=== PATIENT | male | born 1945 ===

== ENCOUNTER 2024-06-16 07:56 | Emergency (ER) | payer MEDICARE, SELFPAY ==
[2024-06-16] VITALS (9 sets, daily range): BP systolic 128–155; BP diastolic 67–83; PULSE 73–90; RESP 16–20; TEMP 36.5–37.2; O2SAT 96–100; BMI 18.4
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
--- NOTE | 2024-06-16 09:07 | PC.NURSE ---
Labs collected and sent as ordered. Awaiting urine sample at this time.
[2024-06-16 09:09] LABS: MANUAL DIFF FLAG NO
[2024-06-16 09:14] LABS: Basophils Absolute Auto 0.1 X10*3/uL (0.0-0.2); Basophils Percent Auto 0.5 % (0-2); Eosinophils Absolute Auto 0.2 X10*3/uL (0.0-0.4); Eosinophils Percent Auto 1.6 % (0-4); Hematocrit 43.1 % (42.0-52.0); Hemoglobin 14.5 g/dl (14.0-18.0); Imm Gran Abs Auto 0.05 X10*3/uL (0.00-0.03); Imm Gran Pct Auto 0.5 % (0.0-0.4); Lymphocytes Absolute Auto 1.7 X10*3/uL (1.2-4.9); Mean Corpuscular HGB Conc 33.6 g/dl (31.0-36.0); Mean Corpuscular Hemoglobin 30.9 pg (27.0-33.0); Mean Corpuscular Volume 91.7 fL (80.0-98.0); Mean Platelet Volume 10.2 fL (9.4-12.4); Monocytes Absolute Auto 0.9 X10*3/uL (0.1-1.2); Monocytes Percent Auto 9.1 % (2-11); Neutrophils Absolute Auto 6.6 x10*3/uL (2.0-8.3); Neutrophils Percent Auto 70.3 % (45-73); Platelet Count 250 X10*3/uL (160-400); Red Cell Distribution Width 12.5 % (11.0-16.0); White Blood Count 9.4 X10*3/uL (4.8-10.8)
[2024-06-16 09:21] LABS: Anion Gap 12 (12-20); Blood Urea Nitrogen 12 mg/dL (9-16); Calcium 9.1 mg/dL (8.4-10.2); Carbon Dioxide 26 mmol/L (22-29); Chloride 108 mmol/L (96-108); Creatinine Clr Calc Pharmacy 59.7; Estimated Glomerular Filt Rate > 60; Glucose Random 99 mg/dL (60-115); Potassium 3.7 mmol/L (3.3-5.1); Sodium 142 mmol/L (135-145)
[2024-06-16 09:35] LABS: Troponin-I High Sensitivity < 2.7 ng/L (<3.5-35.0)
--- NOTE | 2024-06-16 10:13 | PC.NURSE ---
Pt. visibly soiled. Changed over to hospital attire and personal belongings bagged and locked in pt. belongings closet between Main ED and Pod.
[2024-06-16 12:13] LABS: Appearance Urine Clear; Color Urine Yellow; Glucose Urine UA Negative (Negative); Leukocyte Esterase Urine Trace (Negative); Nitrite Urine Negative (Negative); Specific Gravity - Urine 1.015 (1.005-1.025); UMIC TRIGGER UACC YES; Urine Blood Negative (Negative); Urine Ketones Trace mg/dL (Negative); Urine Protein Negative (Neg-Trace)
[2024-06-16 12:16] LABS: Bacteria Urine None Seen (None Seen); Hyaline Casts Urine 0-2 /LPF (0-2); RBC Urine 0-2 /HPF (0-2); Squamous Epithelial Cell Urine 0-2 /HPF (0-2); WBC Urine 0-5 /HPF (0-5)
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
--- NOTE | 2024-06-16 17:26 | PHA.MEDREC ---
Pharmacy Consult ? Medication Reconciliation Pharmacy has reviewed the medication reconciliation completed by nursing. Claim history matches confirmed meds.
--- NOTE | 2024-06-16 17:49 | MHC.EDTECH ---
Pt was freshened up and linens were changed
[2024-06-16] MEDS: amLODIPine Besylate 5 MG TABLET PO (18:23)
[2024-06-16] MEDS: polyethylene glycoL 3350 17 GM POWD.PACK PO (18:23)
[2024-06-16] MEDS: Divalproex Sodium Sprinkles 125 MG CAP.DR.SPR 250 MG PO ×2 (18:24→20:29)
[2024-06-16] MEDS: Cholecalciferol (Vitamin D3) 25 MCG TABLET PO (18:27)
[2024-06-16] MEDS: QUEtiapine Fumarate 50 MG TABLET PO (20:29)
[2024-06-16] MEDS: Melatonin 3 MG TABLET 6 MG PO (20:29)
[2024-06-17 06:42] VITALS: RESP 15
--- NOTE | 2024-06-17 06:43 | PC.NURSE ---
pt slept comfortably throughout the night, repositioning self as needed. bed alarm on. nad.
[2024-06-17 08:29] VITALS: BP 132/91; PULSE 71; RESP 16; TEMP 36.8; O2SAT 100
[2024-06-17] MEDS: Divalproex Sodium Sprinkles 125 MG CAP.DR.SPR 250 MG PO (08:40)
[2024-06-17] MEDS: Cholecalciferol (Vitamin D3) 25 MCG TABLET PO (08:40)
[2024-06-17] MEDS: polyethylene glycoL 3350 17 GM POWD.PACK PO (08:40)
[2024-06-17] MEDS: QUEtiapine Fumarate 50 MG TABLET PO ×2 (08:40→13:09)
[2024-06-17] MEDS: amLODIPine Besylate 5 MG TABLET PO (08:40)
--- NOTE | 2024-06-17 08:57 | PC.NURSE ---
patient provided with breakfast, takes pills whole with water. patient has to be prompted to takes pills - takes w/out incident. resting quietly in room, no obvious signs/symptoms of distress noted. remains in behavioral control.
--- NOTE | 2024-06-17 10:45 | PC.NURSE ---
patient out of bed and ambulated to the bathroom. large bowel movement in brief - refusing to change armen pants for this RN. tech at bedside able to change and clean patient. now resting quietly in room w/ bed alarm on
--- NOTE | 2024-06-17 12:32 | MHC.CM.ED ---
Patient remains in ER. No behaviors noted since being in ER. Patient took all medication without issues. Spoke with Meghan at [facility]. Above was explained. Meghan requested patient receive 12pm Depakote before transport. Daphney FRANCO aware and will administer Depakote. Attempted to notify patient's , Maxwell via telephone at [phone]. Left voicemail explaining patient would leave at 130pm. Shae PORTER booked. [facility] with chart. Patient, Daphney FRANCO and Zaida GILLIAM aware. Continue to monitor for d/c needs.
[2024-06-17 15:42] VITALS: BP 132/91; PULSE 71; RESP 16; TEMP 36.8; O2SAT 100
== END 2024-06-17 13:00 | disposition skilled nursing facility (03) ==
PROVIDERS: Emergency Provider Emergency Medicine; PCP Internal Medicine
DX: F03.90 Unspecified dementia, unspecified severity, without behavioral disturbance, psychotic disturbance, mood disturbance, and anxiety (principal)
CPT/HCPCS: 36415; 80048; 81001; 84484; 85025; 99284; 99285

== ENCOUNTER 2024-06-23 17:02 | Emergency (ER) | payer MEDICARE, SELFPAY ==
[2024-06-23 17:14] VITALS: BP 141/77; BP 145/78; PULSE 102; PULSE 96; RESP 16; TEMP 36.8; O2SAT 97; O2SAT 98; BMI 26.6
--- NOTE | 2024-06-23 17:17 | PC.NURSE ---
[facility]
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
[2024-06-23 17:38] LABS: MANUAL DIFF FLAG NO
[2024-06-23 17:41] LABS: Basophils Percent Auto 0.4 % (0-2); Eosinophils Absolute Auto 0.2 X10*3/uL (0.0-0.4); Eosinophils Percent Auto 2.8 % (0-4); Hematocrit 42.2 % (42.0-52.0); Hemoglobin 13.7 g/dl (14.0-18.0); Imm Gran Abs Auto 0.07 X10*3/uL (0.00-0.03); Lymphocytes Absolute Auto 2.5 X10*3/uL (1.2-4.9); Lymphocytes Percent Auto 34.1 % (20-40); Mean Corpuscular HGB Conc 32.5 g/dl (31.0-36.0); Mean Corpuscular Hemoglobin 30.2 pg (27.0-33.0); Mean Platelet Volume 10.5 fL (9.4-12.4); Monocytes Percent Auto 13.8 % (2-11); Neutrophils Absolute Auto 3.5 x10*3/uL (2.0-8.3); Neutrophils Percent Auto 47.9 % (45-73); Platelet Count 242 X10*3/uL (160-400); Red Blood Count 4.54 X10*6/uL (4.60-5.80); Red Cell Distribution Width 12.3 % (11.0-16.0); White Blood Count 7.3 X10*3/uL (4.8-10.8)
[2024-06-23 17:59] LABS: Alanine Aminotransferase 16 U/L (0-40); Albumin Level 3.9 g/dL (3.5-5.0); Alkaline Phosphatase 55 U/L (39-117); Anion Gap 12 (12-20); Aspartate Amino Transferase 12 U/L (5-37); Bilirubin Direct 0.2 mg/dL (0.0-0.5); Bilirubin Total 0.4 mg/dL (0.0-1.0); Blood Urea Nitrogen 15 mg/dL (9-16); Calcium 8.5 mg/dL (8.4-10.2); Carbon Dioxide 28 mmol/L (22-29); Chloride 105 mmol/L (96-108); Creatinine Clr Calc Pharmacy 68.4; Estimated Glomerular Filt Rate > 60; Glucose Random 108 mg/dL (60-115); Potassium 3.7 mmol/L (3.3-5.1); Sodium 141 mmol/L (135-145); Total Protein 6.5 g/dL (6.5-8.0)
[2024-06-23 18:10] VITALS: BP 120/72; PULSE 81; RESP 17; O2SAT 98
--- NOTE | 2024-06-23 20:16 | PC.NURSE ---
pt resting quietly with 1:1 at bedside- pt has been cooperative with care, ambulating with sitter around dept- no disruptive or aggresive behaviors- care ongoing
[2024-06-23 20:51] VITALS: BP 124/65; PULSE 81; RESP 16; TEMP 36.7; O2SAT 99
--- NOTE | 2024-06-23 22:05 | PC.NURSE ---
Addendum entered by Ayanna Salas LPN 06/23/24 22:08: pt remains in department- pt was incontinent of urine in brief- personal care provided, 1:[address], pt has yet to provide urine sample. awaiting care team david Original Note: pt remains in department- pt was incontinent of urine in brief- personal care provided, 1:[address], pt has yet to provide urine sample.
--- NOTE | 2024-06-23 22:13 | MHC.CARE ---
Pt was assessed by CARE team, disposition was discussed with Leticia Renteria MD who was in agreement that Pt will [facility]. Pt resides on a secure memory unit and has been followed by [facility] [employer] director, Barby Winn, for the past couple months who is working to make some medication adjustments to better address his behaviors. Psych consult or higher level of care are not indicated at this time due to Pt is being followed by [facility] [employer] provider & currently resides on a secure memory unit to address his advanced stage dementia.
--- NOTE | 2024-06-23 23:00 | PC.NURSE ---
Assumed care of pt. Pt lying on stretcher, no acute distress at this time. 1:1 sitter for safety at bedside.
[2024-06-24] VITALS: BP 123/63; PULSE 78; RESP 16; O2SAT 99
--- NOTE | 2024-06-24 03:02 | PC.NURSE ---
Attempted straight catheterization per MD verbal request, pt resistant to procedure despite verbal reassurance.
--- NOTE | 2024-06-24 03:40 | PC.NURSE ---
This RN called [facility] to give RN to RN report on return of patient. This RN was notified by facility that they would be unable to accept the patient until after 8a due to staffing issues, and the RN does not arrive to the facility until after 8am. MD clarke.
[2024-06-24 06:00] VITALS: BP 132/77; PULSE 73; RESP 16; TEMP 36.8; O2SAT 97
--- NOTE | 2024-06-24 07:16 | PHA.MEDREC ---
Addendum entered by Makayla Cordero [facility] 06/24/24 08:02: MED REC REVIEWED BY [facility] Addendum entered by Pastor Jeffries 06/24/24 08:00: List from [facility]. Original Note: Pharmacy Consult ? Medication Reconciliation Pharmacy has completed the medication reconciliation. List
--- NOTE | 2024-06-24 08:16 | PC.NURSE ---
report called to [facility], no answer but message left. Overnight shift spoke with them and said they could not take the pt back until 8am, ambulance booked for 0900
[2024-06-24 09:03] VITALS: BP 154/89; PULSE 88; RESP 16; TEMP 36.6; O2SAT 98
--- NOTE | 2024-06-24 09:05 | MHC.EDTECH ---
Patient inc therefore patient washed up and armen changed
[2024-06-24 09:21] VITALS: BP 154/89; PULSE 88; RESP 16; TEMP 36.6; O2SAT 98
--- NOTE | 2024-06-24 10:46 | MHC.EDTECH ---
BELONGINGS NOT GIVEN TO AMB CREW UPON D/C BACK TO THE [facility] LOCATED IN THE [place] [facility]OS[facility], CONFIRMED BY RN BOO
--- NOTE | 2024-06-27 09:44 | MHC.EDTECH ---
MARSHALL WASHINGTON CALLS LOOKING FOR BELONGINGS...FOUND IN [place]. SHE WILL CONTROL ROOM AGENT IN SECURITY HER NUMBER IS: [phone]
== END 2024-06-24 09:21 | disposition skilled nursing facility (03) ==
PROVIDERS: Emergency Provider Emergency Medicine; PCP Internal Medicine
DX: F03.90 Unspecified dementia, unspecified severity, without behavioral disturbance, psychotic disturbance, mood disturbance, and anxiety (principal); Z79.899 Other long term (current) drug therapy
CPT/HCPCS: 36415; 80048; 80076; 85025; 99284; 99285; S9485